=== PATIENT | male | born 1960 | race Hispanic/Latino ===

== ENCOUNTER 2022-06-30 19:13 | Emergency (ER) | payer OTHER ==
[~2022-06-30] VITALS: Ht 157.5 cm; Wt 61.5 kg
[2022-06-30 19:38] VITALS: BP 135/73
[2022-06-30] MEDS ORDERED: ACETAMINOPHEN 500 MG TABLET PO ONE (20:00)
== END 2022-06-30 21:03 | disposition home or self-care (01) ==
LOC: EDH 19:13
DX: S93.491A Sprain of other ligament of right ankle, initial encounter (principal); I10 Essential (primary) hypertension; Z98.890 Other specified postprocedural states; W22.8XXA Striking against or struck by other objects, initial encounter; Y93.01 Activity, walking, marching and hiking; Y92.89 Other specified places as the place of occurrence of the external cause; Y99.8 Other external cause status
CPT/HCPCS: 73600